=== PATIENT | male | born 1935 | race Caucasian/White ===

== ENCOUNTER 2018-04-11 12:54 | Emergency (ER) | payer MEDICARE, OTHER ==
[~2018-04-11] VITALS: Ht 167.6 cm; Wt 115.7 kg
[~2018-04-11 12:54] MED LIST: AMLODIPINE BESYL5 MG PO; ASPIR 8181 MG PO; ATENOLOL100 MG PO; CIPRO500 MG PO; CLOPIDOGREL75 MG PO; CONTOUR NEXT1 EACH MISC; COZAAR50 MG PO; FUROSEMIDE20 MG PO; KEFLEX500 MG PO; LANTUS SOL100 UNIT/1 SUB-Q; LISINOPRIL20 MG PO; METFORMIN HCL500 MG PO; NORCO 5-325 TA1 EACH PO; SIMVASTATIN20 MG PO; VITAMIN D31000 UNIT PO
[2018-04-11] MEDS ORDERED: METHYLPREDNISOLO4 M1 PO (15:05)
== END 2018-04-11 15:11 | disposition home or self-care (01) ==
LOC: ED 12:54
DX: M54.30 Sciatica, unspecified side (principal); M51.36 Other intervertebral disc degeneration, lumbar region; M47.896 Other spondylosis, lumbar region; E11.9 Type 2 diabetes mellitus without complications; I10 Essential (primary) hypertension; E78.00 Pure hypercholesterolemia, unspecified; Z87.891 Personal history of nicotine dependence; Z79.899 Other long term (current) drug therapy; Z79.4 Long term (current) use of insulin; Z79.82 Long term (current) use of aspirin
CPT/HCPCS: 72131; 73700; 80053; 81001; 85025; 96374; 99284; J1885

== ENCOUNTER 2019-01-28 04:03 | Emergency (ER) | payer MEDICARE, OTHER ==
[~2019-01-28] VITALS: Ht 167.6 cm; Wt 115.7 kg
--- OUTSIDE RECORDS SUMMARY | ~2019-01-28 | XMS | Clinical Summary ---
Demographics + + + | Address | [address] | | | [place] [address] | + + + | Home Phone | | + + + | Preferred Language | Unknown | + + + | Marital Status | | + + + | Muslim Affiliation | Unknown | + + + | Race | Unknown | + + + | Ethnic Group | Unknown | + + + Author + + + | Author | [facility] | | | and Michaelana | + + + | Organization | [facility] | | | and Michaelana | + + + | Address | Unknown | + + + | Phone | Unavailable | + + + Support + + + + + | Name | Relationship | Address | Phone | + + + + + | Sheba Bynum | ECON | [address] | | | | | [facility] [place] | | | | | [address] | | + + + + + Care Team Providers + +------+ + | Care French Drawer Name | Role | Phone | + +------+ + | Jamarcus Cage DO | PP | Unavailable | + +------+ + Allergies No Known Allergies Current Medications + + +-------+---------+------+------+-------+ | Prescription | Sig. | Disp. | Refills | Star | End | Statu | | | | | | t | Date | s | | | | | | Date | | | + + +-------+---------+------+------+-------+ | aspirin (ADULT | Take 81 mg by mouth | | | 01/30 | | Activ | | ASPIRIN EC LOW | Daily. | | | 05/20 | | e | | STRENGTH) 81 MG EC | | | | 12 | | | | tablet | | | | | | | + + +-------+---------+------+------+-------+ | lisinopril | Take 20 mg by mouth | | | 01/30 | | Activ | | (PRINIVIL, ZESTRIL) | Daily. | | | 05/20 | | e | | 20 mg tablet | | | | 12 | | | + + +-------+---------+------+------+-------+ | simvastatin | Take 20 mg by mouth | | | 07/02 | | Activ | | (ZOCOR) 20 mg tablet | Daily. | | | 01/18 | | e | | | | | | 12 | | | + + +-------+---------+------+------+-------+ | furosemide (LASIX) | Take 20 mg by mouth | | | 07/02 | | Activ | | 20 mg tablet | 2 times daily. | | | 01/18 | | e | | | | | | 12 | | | + + +-------+---------+------+------+-------+ | cholecalciferol | Take 1,000 Units by | | | 07/02 | | Activ | | ([facility] VITAMIN D) 1000 | mouth 2 times daily. | | | 01/18 | | e | | UNITS CAPS | | | | 12 | | | + + +-------+---------+------+------+-------+ | clopidogrel | Take 75 mg by mouth | | | | | Activ | | (PLAVIX) 75 mg | Daily. | | | | | e | | tablet | | | | | | | + + +-------+---------+------+------+-------+ | losartan (COZAAR) | Take 50 mg by mouth | | | | | Activ | | 50 mg tablet | Daily. | | | | | e | + + +-------+---------+------+------+-------+ | LANTUS SOLOSTAR | Inject 12 units | | 0 | 08/01 | | Activ | | 100 UNIT/ML | under the skin | | | 07/21 | | e | | injection (pen) | nightly | | | 16 | | | + + +-------+---------+------+------+-------+ | atenolol | Take 50 mg by mouth | | | | | Activ | | (TENORMIN) 100 MG | 2 times daily. | | | | | e | | tablet | | | | | | | + + +-------+---------+------+------+-------+ | allopurinol | Take 100 mg by mouth | | | | | Activ | | (ZYLOPRIM) 100 mg | Daily. | | | | | e | | tablet | | | | | | | + + +-------+---------+------+------+-------+ Active Problems + + + | Problem | Noted Date | + + + | COPD, mild (HCC) | 09/17/2015 | + + + | Alveolar hypoventilation | 09/11/2014 | + + + | HYPERTENSION, BENIGN ESSENTIAL | 02/16/2012 | + + + | RENAL FAILURE, CHRONIC | 02/16/2012 | + + + | DM | 02/16/2012 | + + + | OSTEOARTHRITIS, ANKLE | 02/16/2012 | + + + | HYPOXEMIA | | + + + Resolved Problems + +--------+ + | Problem | Noted | Resolved | | | Date | Date | + +--------+ + | COPD | | | | | | 3 | + +--------+ + | Sleep apnea, obstructive | | | | | | 3 | + +--------+ + Immunizations + + + + | Name | Dates Previously Given | Next Due | + + + + | INFLUENZA 66 Y OR >, | 08/25/2016, 08/17/2015 | | | TRIVALENT HIGH-DOSE | | | + + + + | INFLUENZA PF 19 Y OR | 08/31/2012 | | | >,TRIVALENT | | | | RECOMBINANT | | | + + + + | PNEUMOCOCCAL | 08/17/2015 | | | CONJUGATE 13-VALENT | | | | (PCV13) | | | + + + + | PNEUMOCOCCAL | 09/07/2009 | | | POLYSACCHARIDE | | | | 23-VALENT (PPSV23) | | | + + + + Family History + + +------+ + | Medical History | Relation | Name | Comments | + + +------+ + | Other (see comment) | Father | | CVA | + + +------+ + | Other (see comment) | Sister | | CAD | + + +------+ + | Other (see comment) | Sister | | CABG | + + +------+ + + +------+ + + | Relation | Name | Status | Comments | + +------+ + + | Father | | | | + +------+ + + | Mother | | | | + +------+ + + | Sister | | | | + +------+ + + | Sister | | | | + +------+ + + Social History + +-------+ +--------+ + | Tobacco Use | Types | Packs/Day | Years | Date | | | | | Used | | + +-------+ +--------+ + | Former Smoker | | 1 | 43 | 12/16/1955 - | | | | | | 09/07/2003 | + +-------+ +--------+ + + +---+---+---+ | Smokeless Tobacco: | | | | | Never Used | | | | + +---+---+---+ + + | Tobacco Cessation: Counseling Given: No | + + + + +---------+ + | Alcohol Use | Drinks/We | oz/Week | Comments | | | ek | | | + + +---------+ + | No | 0 | 0.0 | | | | Standard | | | | | drinks or | | | | | | | | | | equivalen | | | | | t | | | + + +---------+ + + + + | Sex Assigned at | Date Recorded | | | | + + + | Not on file | | + + + Last Filed Vital Signs + + + + | Vital Sign | Reading | Time Taken | + + + + | Blood Pressure | 120/80 | 09/15/20161245 PST | + + + + | Pulse | 92 | 09/15/20161245 PST | + + + + | Temperature | 36.7 C (98 F) | 09/17/20151315 PST | + + + + | Respiratory Rate | 20 | 09/17/20151315 PST | + + + + | Oxygen Saturation | 93% | 09/15/20161245 PST | + + + + | Inhaled Oxygen | - | - | | Concentration | | | + + + + | Weight | 113.7 kg (250 lb 9.6 | 09/15/20161245 PST | | | oz) | | + + + + | Height | 170.2 cm (5' 7") | 09/15/20161245 PST | + + + + | Body Mass Index | 39.25 | 09/15/20161245 PST | + + + + Plan of [...] filefrom Last 3 Months Insurance + +--------+ +--------+ +---------+ | Payer | Benefi | Subscriber | Type | Phone | Address | | | t Plan | ID | | | | | | / | | | | | | | Group | | | | | + +--------+ +--------+ +---------+ | MEDICARE | MEDICA | [id number] | Medica | +1- | | | | RE | | re | [phone] | | | | PART A | | | | | | | AND B | | | | | + +--------+ +--------+ +---------+ | [employer] [place] | UNITED | [id number] | Indemn | [phone] | | | | OF | | ity | 1000 | | | | [place] | | | | | | | MDCR | | | | | | | SUPPL | | | | | + +--------+ +--------+ +---------+ + +--------+ +--------+ + + | Guarantor Name | Accoun | Relation to | Date | Phone | Billing Address | | | t Type | Patient | of | | | | | | | | | | + +--------+ +--------+ + + | LEXIS BYNUM | Person | Self [birth year] Home: | [address] | | | al/Fam | | 1935 | [phone] | [place] [address] | | | [place] | | | [phone] | | + +--------+ +--------+ + +
--- OUTSIDE RECORDS SUMMARY | ~2019-01-28 | XMS | Clinical Summary ---
Demographics + + + | Address | [address] | | | [place] [address] | + + + | Home Phone | | + + + | Preferred Language | Unknown | + + + | Marital Status | | + + + | Gnosticism Affiliation | Unknown | + + + | Race | Unknown | + + + | Ethnic Group | Unknown | + + + Author + + + | Author | [facility] | + + + | Organization | [facility] | + + + | Address | Unknown | + + + | Phone | Unavailable | + + + Support + + + + + | Name | Relationship | Address | Phone | + + + + + | Sheba Bynum | ECON | [address] | | | | | [place] | | | | | [address] | | + + + + + Care Team Providers + +------+ + | Care Community Educator Name | Role | Phone | + [...] +------+-------+ + | MEDICARE | MEDICA | [id number] | | | [address] | | | RE | | | | [place], [place] [address] | | | IP-OP | | | | | + +--------+ +------+-------+ + | COMMERCIAL OTHER | COMMER | [id number] | | | | | | CIAL [...] | | | jov[place] | | | [phone] | [phone] | + +--------+ +--------+ + +
--- OUTSIDE RECORDS SUMMARY | ~2019-01-28 | XMS | Clinical Summary ---
Demographics + + + | Address | [address] | | | [place] [address] | + + + | Home Phone | | + + + | Preferred Language | Unknown | + + + | Marital Status | | + + + | Protestant Affiliation | Unknown | + + + | Race | Unknown | + + + | Ethnic Group | Unknown | + + + Author + + + | Author | [facility] | | | and Michaelana | + + + | Organization | [facility] | | | and Michaelana | + + + | Address | Unknown | + + + | Phone | Unavailable | + + + Support + + + + + | Name | Relationship | Address | Phone | + + + + + | Sheba Bynum | ECON | [address] | | | | | [facility] [place] | | | | | [address] | | + + + + + Care Team Providers + +------+ + | Care Comparison Shopper Name | Role | Phone | + [...] +--------+ +---------+ | MEDICARE | MEDICA | [id number] | Medica | +1- | | | | RE | | re | [phone] | | | | PART A | | | | | | | AND B | | | | | + +--------+ +--------+ +---------+ | [employer] [place] | UNITED | [id number] | Indemn | [phone] | | | | OF | | ity | 1000 | | | | [place] | | | | | | | [...] | 1935 | [phone] | [place] [address] | | | jovita | | | [phone] | | + +--------+ +--------+ + +
--- OUTSIDE RECORDS SUMMARY | ~2019-01-28 | XMS | Clinical Summary ---
Demographics + + + | Address | [address] | | | [place] [address] | + + + | Home Phone | | + + + | Preferred Language | Unknown | + + + | Marital Status | | + + + | Scientology Affiliation | Unknown | + + + | Race | Unknown | + + + | Ethnic Group | Unknown | + + + Author + + + | Author | [facility] | + + + | Organization | [facility] | + + + | Address | Unknown | + + + | Phone | Unavailable | + + + Support + + + + + | Name | Relationship | Address | Phone | + + + + + | Sheba Bynum | ECON | [address] | | | | | [place] | | | | | [address] | | + + + + + Care Team Providers + +------+ + | Care Lumber Inspector Name | Role | Phone | [...] +------+-------+ + | MEDICARE | MEDICA | [id number] | | | [address] | | | RE | | | | [place], [place] [address] | | | IP-OP | | | | | + +--------+ +------+-------+ + | COMMERCIAL OTHER | COMMER | [id number] | | | | | | CIAL [...] | | | [place] | | | [phone] | [phone] | + +--------+ +--------+ + +
[~2019-01-28 04:03] MED LIST changes: +METHYLPREDNISOLO4 M1 PO
[2019-01-28] MEDS ORDERED: ATENOLOL100 MG PO (04:18)
[2019-01-28] MEDS ORDERED: LOSARTAN POTASS50 MG PO ×2 (04:18)
== END 2019-01-28 05:12 | disposition home or self-care (01) ==
LOC: ED 04:03
DX: R04.0 Epistaxis (principal); E11.9 Type 2 diabetes mellitus without complications; I10 Essential (primary) hypertension; E78.00 Pure hypercholesterolemia, unspecified; Z87.891 Personal history of nicotine dependence; Z79.899 Other long term (current) drug therapy; Z79.4 Long term (current) use of insulin; Z79.82 Long term (current) use of aspirin
CPT/HCPCS: 30901; 99283-25

== ENCOUNTER 2019-01-28 09:41 | Emergency (ER) | payer MEDICARE, OTHER ==
[~2019-01-28] VITALS: Ht 167.6 cm; Wt 115.7 kg
--- OUTSIDE RECORDS SUMMARY | ~2019-01-28 | XMS | Clinical Summary ---
Demographics + + + | Address | [address] | | | [place] [address] | + + + | Home Phone | | + + + | Preferred Language | Unknown | + + + | Marital Status | | + + + | Gnosticist Affiliation | Unknown | + + + | Race | Unknown | + + + | Ethnic Group | Unknown | + + + Author + + + | Author | [facility] | + + + | Organization | [facility] | + + + | Address | Unknown | + + + | Phone | Unavailable | + + + Support + + + + + | Name | Relationship | Address | Phone | + + + + + | Sheba Bynum | ECON | [address] | | | | | [place] | | | | | [address] | | + + + + + Care Team Providers + +------+ + | Care Jewel Stripper Name | Role | Phone | + [...] +------+-------+ + | MEDICARE | MEDICA | [id number] | | | [address] | | | RE | | | | [place], [place] [address] | | | IP-OP | | | | | + +--------+ +------+-------+ + | COMMERCIAL OTHER | COMMER | [id number] | | | | | | CIAL [...] | | | jovita | | | [phone] | [phone] | + +--------+ +--------+ + +
--- OUTSIDE RECORDS SUMMARY | ~2019-01-28 | XMS | Clinical Summary ---
Demographics + + + | Address | [address] | | | [place] [address] | + + + | Home Phone | | + + + | Preferred Language | Unknown | + + + | Marital Status | | + + + | Anglican Affiliation | Unknown | + + + | Race | Unknown | + + + | Ethnic Group | Unknown | + + + Author + + + | Author | [facility] | + + + | Organization | [facility] | + + + | Address | Unknown | + + + | Phone | Unavailable | + + + Support + + + + + | Name | Relationship | Address | Phone | + + + + + | Sheba Bynum | ECON | [address] | | | | | [place] | | | | | [address] | | + + + + + Care Team Providers + +------+ + | Care Editing Clerk Name | Role | Phone | + [...] +------+-------+ + | MEDICARE | MEDICA | [id number] | | | [address] | | | RE | | | | [place], [place] [address] | | | IP-OP | | | | | + +--------+ +------+-------+ + | COMMERCIAL OTHER | COMMER | [id number] | | | | | | CIAL [...] | | | [place] | | | [phone] | [phone] | + +--------+ +--------+ + +
--- OUTSIDE RECORDS SUMMARY | ~2019-01-28 | XMS | Clinical Summary ---
Demographics + + + | Address | [address] | | | [place] [address] | + + + | Home Phone | | + + + | Preferred Language | Unknown | + + + | Marital Status | | + + + | Gnosticism Affiliation | Unknown | + + + | Race | Unknown | + + + | Ethnic Group | Unknown | + + + Author + + + | Author | [facility] | | | and Michaelana | + + + | Organization | [facility] | | | and Michaelana | + + + | Address | Unknown | + + + | Phone | Unavailable | + + + Support + + + + + | Name | Relationship | Address | Phone | + + + + + | Sheba Bynum | ECON | [address] | | | | | [facility] [place] | | | | | [address] | | + + + + + Care Team Providers + +------+ + | Care Temporary Administrative Assistant Name | Role | Phone | + [...] +--------+ +---------+ | MEDICARE | MEDICA | [id number] | Medica | +1- | | | | RE | | re | [phone] | | | | PART A | | | | | | | AND B | | | | | + +--------+ +--------+ +---------+ | [employer] [place] | UNITED | [id number] | Indemn | [phone] | | | | OF | | ity | 1000 | | | | TELLER | | | | | | | [...] | 1935 | [phone] | [place] [address] | | | j[place]ita | | | [phone] | | + +--------+ +--------+ + +
--- OUTSIDE RECORDS SUMMARY | ~2019-01-28 | XMS | Clinical Summary ---
Demographics + + + | Address | [address] | | | [place] [address] | + + + | Home Phone | | + + + | Preferred Language | Unknown | + + + | Marital Status | | + + + | Rastafarian Affiliation | Unknown | + + + | Race | Unknown | + + + | Ethnic Group | Unknown | + + + Author + + + | Author | [facility] | | | and Michaelana | + + + | Organization | [facility] | | | and Michaelana | + + + | Address | Unknown | + + + | Phone | Unavailable | + + + Support + + + + + | Name | Relationship | Address | Phone | + + + + + | Sheba Bynum | ECON | [address] | | | | | [address] [place] | | | | | [address] | | + + + + + Care Team Providers + +------+ + | Care Preparation Room Worker Name | Role | Phone | + [...] +--------+ +---------+ | MEDICARE | MEDICA | [id number] | Medica | +1- | | | | RE | | re | [phone] | | | | PART A | | | | | | | AND B | | | | | + +--------+ +--------+ +---------+ | [employer] [place] | UNITED | [id number] | Indemn | [phone] | | | | OF | | ity | 1000 | | | | [place] | | | | | | | [...] | 1935 | [phone] | [place] [address] | | | [place] | | | [phone] | | + +--------+ +--------+ + +
[~2019-01-28 09:41] MED LIST changes: +LOSARTAN POTASS50 MG PO
--- OUTSIDE RECORDS SUMMARY | 2019-01-28 09:44 | XMS ---
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 ECarlos VISIT COUNT (12 MO.) 3 [facility] TOTAL 3 NOTE: Visits indicate total known visits. 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
== END 2019-01-28 11:04 | disposition home or self-care (01) ==
LOC: ED 09:41
DX: R04.0 Epistaxis (principal); E11.9 Type 2 diabetes mellitus without complications; I10 Essential (primary) hypertension; Z87.891 Personal history of nicotine dependence; Z79.899 Other long term (current) drug therapy; Z79.4 Long term (current) use of insulin; Z79.82 Long term (current) use of aspirin
CPT/HCPCS: 30905; 85025; 99283-25

== ENCOUNTER 2019-01-30 11:20 | Emergency (ER) | payer MEDICARE, OTHER ==
[~2019-01-30] VITALS: Ht 167.6 cm; Wt 115.7 kg
--- OUTSIDE RECORDS SUMMARY | ~2019-01-30 | XMS | Clinical Summary ---
Demographics + + + | Address | [address] | | | [place] [address] | + + + | Home Phone | | + + + | Preferred Language | Unknown | + + + | Marital Status | | + + + | Mandaen Affiliation | Unknown | + + + | Race | Unknown | + + + | Ethnic Group | Unknown | + + + Author + + + | Author | [facility] | + + + | Organization | [facility] | + + + | Address | Unknown | + + + | Phone | Unavailable | + + + Support + + + + + | Name | Relationship | Address | Phone | + + + + + | Sheba Bynum | ECON | [address] | | | | | [place] | | | | | [address] | | + + + + + Care Team Providers + +------+ + | Care Spring Coiler Name | Role | Phone | + +------+ + | Jarred Cage DO | PP | | + +------+ + Allergies No Known Allergies Current Medications + + +--------+---------+------+------+-------+ | Prescription | Sig. | Disp. | Refills | Star | End | Statu | | | | | | t | Date | s | | | | | | Date | | | + + +--------+---------+------+------+-------+ | aspirin 81 MG | Take 81 mg by mouth | | | | | Activ | | tablet | daily. | | | | | e | + + +--------+---------+------+------+-------+ | atenolol | Take 50 mg by mouth | | | | | Activ | | (TENORMIN) 100 MG | 2 (two) times daily. | | | | | e | | tablet | | | | | | | + + +--------+---------+------+------+-------+ | simvastatin | Take 20 mg by mouth | | | | | Activ | | (ZOCOR) 20 MG tablet | nightly. | | | | | e | + + +--------+---------+------+------+-------+ | Cholecalciferol | Take 2,000 Units by | | | | | Activ | | (VITAMIN D3) 1000 | mouth daily. | | | | | e | | UNITS capsule | | | | | | | + + +--------+---------+------+------+-------+ | furosemide (LASIX) | Take 1 tablet by | 60 | 11 | 03/1 | | Activ | | 20 MG tablet | mouth 2 (two) times | tablet | | 0/20 | | e | | | daily. | | | 14 | | | + + +--------+---------+------+------+-------+ | lisinopril | Take 1 tablet by | 30 | 11 | 08/0 | | Activ | | (ZESTRIL) 20 MG | mouth daily. | tablet | | 05/20 | | e | | tablet | | | | 14 | | | + + +--------+---------+------+------+-------+ | insulin glargine | Inject 12 Units into | | | | | Activ | | (LANTUS) 100 UNIT/ML | the skin nightly. | | | | | e | | | Indications: Type 2 | | | | | | | injectionIndications | Diabetes | | | | | | | : Type 2 Diabetes | | | | | | | | Mellitus | | | | | | | + + +--------+---------+------+------+-------+ | clopidogrel | Take 1 tablet by | 30 | 1 | 07 | | Activ | | (PLAVIX) 75 MG | mouth daily. | tablet | | 07/21 | | e | | tablet | | | | 15 | | | + + +--------+---------+------+------+-------+ | losartan (COZAAR) | Take 1 tablet by | 90 | 3 | 04/01 | | Activ | | 50 MG | mouth daily. | tablet | | 05/20 | | e | | tabletIndications: | | | | 16 | | | | CKD (chronic kidney | | | | | | | | disease), stage III | | | | | | | | (HCC), Essential | | | | | | | | hypertension, | | | | | | | | benign, Proteinuria | | | | | | | + + +--------+---------+------+------+-------+ | allopurinol | Take 100 mg by mouth | | | | | Activ | | (ZYLOPRIM) 100 MG | daily. | | | | | e | | tablet | | | | | | | + + +--------+---------+------+------+-------+ Active Problems + + + | Problem | Noted Date | + + + | Hyperuricemia | 03/08/2013 | + + + | Edema of lower extremity | 01/04/2012 | + + + | CKD (chronic kidney disease), stage III | 11/30/2011 | + + + | Essential hypertension, benign | 11/30/2011 | + + + | Diabetes mellitus (HCC) | 11/30/2011 | + + + | Proteinuria | 11/30/2011 | + + + | Dyslipidemia | 11/30/2011 | + + + | Obesity | 11/30/2011 | + + + | Pulmonary embolism (HCC) | 11/30/2011 | + + + | Vitamin D deficiency | 11/30/2011 | + + + Resolved Problems + + + + | Problem | Noted | Resolved | | | Date | Date | + + + + | Brachial artery occlusion, left | 05/14/20 | | | | 15 | 5 | + + + + Social History + +-------+ +--------+ + | Tobacco Use | Types | Packs/Day | Years | Date | | | | | Used | | + +-------+ +--------+ + | Former Smoker | | 1 | 25 | Quit: 11/30/2001 | + +-------+ +--------+ + + +---+---+---+ | Smokeless Tobacco: | | | | | Never Used | | | | + +---+---+---+ + + | Tobacco Cessation: Counseling Given: No | + + + + +---------+ + | Alcohol Use | Drinks/We | oz/Week | Comments | | | ek | | | + + +---------+ + | No | | | | + + +---------+ + + + + | Sex Assigned at | Date Recorded | | | | + + + | Not on file | | + + + Last Filed Vital Signs + + + + | Vital Sign | Reading | Time Taken | + + + + | Blood Pressure | 156/66 | 06/14/2017 10:38 AM PDT | + + + + | Pulse | 68 | 06/14/2017 10:38 AM PDT | + + + + | Temperature | 35.9 C (96.6 F) | 06/14/2017 10:38 AM PDT | + + + + | Respiratory Rate | 16 | 05/19/2015 1:57 PM PDT | + + + + | Oxygen Saturation | 91% | 06/14/2017 10:38 AM PDT | + + + + | Inhaled Oxygen | - | - | | Concentration | | | + + + + | Weight | 118.2 kg (260 lb 9.6 | 06/14/2017 10:38 AM PDT | | | oz) | | + + + + | Height | 170.2 cm (5' 7") | 06/14/2017 10:38 AM PDT | + + + + | Body Mass Index | 40.82 | 06/14/2017 10:38 AM PDT | + + + + Plan of Treatment + + + + + | Health Maintenance | Due Date | Last Done | Comments | + + + + + | Diabetic Eye Exam | | | | | | 6 | | | + + + + + | Diabetic Foot Exam | | | | | | 6 | | | + + + + + | Vaccine: | | | | | Dtap/Tdap/Td (1 - | 5 | | | | Tdap) | | | | + + + + + | Vaccine: Zoster (1 | | | | | of 2) | 6 | | | + + + + + | Hemoglobin A1c | | 12/17/2017 | | | | 8 | | | + + + + + | Vaccine: Influenza | | 08/25/2016, 08/17/2015, | | | (#1) | 8 | 08/31/2012 | | + + + + + | Vaccine: | Completed | 08/17/2015, 09/07/2009 | | | Pneumococcal 65+ | | | | | Low/Medium Risk | | | | + + + + + Results Not on filefrom Last 3 Months Insurance + +--------+ +------+-------+ + | Payer | Benefi | Subscriber | Type | Phone | Address | | | t Plan | ID | | | | | | / | | | | | | | Group | | | | | + +--------+ +------+-------+ + | MEDICARE | MEDICA | [id number] | | | [address] | | | RE | | | | [place], [place] [address] | | | IP-OP | | | | | + +--------+ +------+-------+ + | COMMERCIAL OTHER | COMMER | [id number] | | | | | | CIAL | | | | | | | GENERI | | | | | | | C PLAN | | | | | + +--------+ +------+-------+ + + +--------+ +--------+ + + | Guarantor Name | Accoun | Relation to | Date | Phone | Billing Address | | | t Type | Patient | of | | | | | | | | | | + +--------+ +--------+ + + | LEXIS BYNUM | Person | Self [birth year] Home: | [address] | | | al/Fam | | 1935 | [phone] | [place] | | | [place] | | | [phone] | + +--------+ +--------+ + +
--- OUTSIDE RECORDS SUMMARY | ~2019-01-30 | XMS | Clinical Summary ---
Demographics + + + | Address | [address] | | | [place] [address] | + + + | Home Phone | | + + + | Preferred Language | Unknown | + + + | Marital Status | | + + + | Holiness Affiliation | Unknown | + + + | Race | Unknown | + + + | Ethnic Group | Unknown | + + + Author + + + | Author | [facility] | | | and [place] | + + + | Organization | [facility] | | | and [place] | + + + | Address | Unknown | + + + | Phone | Unavailable | + + + Support + + + + + | Name | Relationship | Address | Phone | + + + + + | Sheba Bynum | ECON | [address] | | | | | [place] | | | | | [address] | | + + + + + Care Team Providers + +------+ + | Care Environmental Scientist Name | Role | Phone | + [...] +--------+ +---------+ | MEDICARE | MEDICA | [id number] | Medica | [phone]- | | | | RE | | re | [phone] | | | | PART A | | | | | | | AND B | | | | | + +--------+ +--------+ +---------+ | [employer] [place] | UNITED | [id number] | Indemn | [phone] | | | | OF | | ity | [address] | | | | [place] | | | | | | | [...] | 1935 | [phone] | [place] [address] | | | [place] | | | [phone] | | + +--------+ +--------+ + +
--- OUTSIDE RECORDS SUMMARY | ~2019-01-30 | XMS | Clinical Summary ---
Demographics + + + | Address | [address] | | | [place] [address] | + + + | Home Phone | | + + + | Preferred Language | Unknown | + + + | Marital Status | | + + + | Quaker Affiliation | Unknown | + + + | Race | Unknown | + + + | Ethnic Group | Unknown | + + + Author + + + | Author | [facility] | + + + | Organization | [facility] | + + + | Address | Unknown | + + + | Phone | Unavailable | + + + Support + + + + + | Name | Relationship | Address | Phone | + + + + + | Sehba Bynum | ECON | [address] | | | | | [place] | | | | | [address] | | + + + + + Care Team Providers + +------+ + | Care Software Solutions Architect Name | Role | Phone | + [...] +------+-------+ + | MEDICARE | MEDICA | [id number] | | | [address] | | | RE | | | | [place], [place] [address] | | | IP-OP | | | | | + +--------+ +------+-------+ + | COMMERCIAL OTHER | COMMER | [id number] | | | | | | CIAL [...] | | | [place] | | | [phone] | + +--------+ +--------+ + +
--- OUTSIDE RECORDS SUMMARY | ~2019-01-30 | XMS | Clinical Summary ---
Demographics + + + | Address | [address] | | | [place] [address] | + + + | Home Phone | | + + + | Preferred Language | Unknown | + + + | Marital Status | | + + + | Confucianist Affiliation | Unknown | + + + | Race | Unknown | + + + | Ethnic Group | Unknown | + + + Author + + + | Author | [facility] | | | and [place] | + + + | Organization | [facility] | | | and [place] | + + + | Address | Unknown | + + + | Phone | Unavailable | + + + Support + + + + + | Name | Relationship | Address | Phone | + + + + + | Sheba Bynum | ECON | [address] | | | | | [address] [place] [place] | | | | | [address] | | + + + + + Care Team Providers + +------+ + | Care Gas Leak Inspector Name | Role | Phone | + [...] +--------+ +---------+ | MEDICARE | MEDICA | [id number] | Medica | [phone]- | | | | RE | | re | [phone] | | | | PART A | | | | | | | AND B | | | | | + +--------+ +--------+ +---------+ | [employer] [place] | UNITED | [id number] | Indemn | [phone] | | | | OF | | ity | [address] | | | | [place] | | | | | | | [...] | 1935 | [phone] | [place] [address] | | | [place] | | | [phone] | | + +--------+ +--------+ + +
--- OUTSIDE RECORDS SUMMARY | 2019-01-30 11:32 | XMS ---
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 [place] VISIT COUNT (12 MO.) [address] [place] [address] TOTAL 4 NOTE: Visits indicate total known visits. ED/UCC VISIT TRACKING (12 MO.) 01/30/2019 11:21 [facility] [place] TYPE: Emergency COMPLAINT: - NOSE BLEED, REMOVE PACKING 01/28/2019 09:41 [facility] [place] TYPE: Emergency COMPLAINT: - BLOODY NOSE 01/28/2019 04:04 [facility] [place] TYPE: Emergency COMPLAINT: - NOSEBLEED 04/11/2018 12:[address] [facility] [place] TYPE: Emergency COMPLAINT: - R LEG PAIN/NO INJURY DIAGNOSES: - Type 2 diabetes mellitus without complications - Personal history of nicotine dependence - group home (current) use of insulin - Other usp (current) drug therapy - Essential (primary) hypertension - Sciatica, unspecified side - Other intervertebral disc degeneration, lumbar region - PURE HYPERCHOLESTEROLEMIA, UNSPECIFIED - group home (current) use of aspirin - Pain in right hip - Other spondylosis, lumbar region INPATIENT VISIT TRACKING (12 MO.) No inpatient visits to display in this time frame [email or web address]
[2019-01-30] MEDS ORDERED: KEFLEX500 MG PO (11:53)
== END 2019-01-30 11:50 | disposition home or self-care (01) ==
LOC: ED 11:20
DX: R04.0 Epistaxis (principal); E11.9 Type 2 diabetes mellitus without complications; I10 Essential (primary) hypertension; E78.00 Pure hypercholesterolemia, unspecified; Z87.891 Personal history of nicotine dependence; Z79.899 Other long term (current) drug therapy; Z79.4 Long term (current) use of insulin; Z79.82 Long term (current) use of aspirin
CPT/HCPCS: 99282

== ENCOUNTER 2021-01-30 09:51 | Emergency (ER) | payer MEDICARE, OTHER ==
[~2021-01-30] VITALS: Ht 167.6 cm; Wt 115.7 kg
[2021-01-30] MEDS ORDERED: CEPHALEXIN250 M1 PO (12:23)
--- NOTE | 2021-01-30 12:57 | EKG ---
[facility] [address] [facility] [place] [address] Signed Atrial fibrillation Left axis deviation Low voltage QRS Inferior infarct , age undetermined Possible Anterolateral infarct , age undetermined Abnormal ECG No previous ECGs available Confirmed by GISELLE MARTINEZ MD ([id number]) on 01/30/2021 12:56:47 PM Electronically Signed By: GISELLE MARTINEZ MD 01/30/21 1257 PATIENT NAME: LEXIS BYNUM WANDA Electrocardiogram DATE OF : 37 PHYSICIAN: GISELLE MARTINEZ MD REPORT #: [id number] REPORT IS CONFIDENTIAL AND NOT TO BE RELEASED WITHOUT AUTHORIZATION
== END 2021-01-30 13:12 | disposition home or self-care (01) ==
LOC: ED 09:51
DX: I11.0 Hypertensive heart disease with heart failure (principal); I50.9 Heart failure, unspecified; I48.91 Unspecified atrial fibrillation; L03.115 Cellulitis of right lower limb; K59.00 Constipation, unspecified; E11.9 Type 2 diabetes mellitus without complications; E78.00 Pure hypercholesterolemia, unspecified; Z87.891 Personal history of nicotine dependence; Z79.899 Other long term (current) drug therapy; Z79.4 Long term (current) use of insulin; Z79.82 Long term (current) use of aspirin
CPT/HCPCS: 74022; 80053; 81001; 83690; 83880; 84484; 85025; 93005; 93010; 96374; 96375; 99285-25; J0696; J1940

== ENCOUNTER 2022-01-01 15:16 | Inpatient (IN) | payer MEDICARE ==
[~2022-01-01] VITALS: Ht 167.6 cm; Wt 99.2 kg
[~2022-01-01 15:16] MED LIST changes: +CEPHALEXIN250 M1 PO; -VITAMIN D31000 UNIT PO; +VITAMIN D325 MC4 PO
[2022-01-01] MEDS ORDERED: CEPHALEXIN500 M1 PO (21:26)
--- NOTE | 2022-01-02 00:26 | NUR ---
PT ARRIVED VIA STRETCHER, PT MOVED TO HOSPITAL BED AND PLACED IN POSITION OF COMFORT, PT VERY HARD OF HEARING, POOR HISTORIANELVIA DOCUMENTED, PRIMARY RN NOTIFIED OF PT STATUS AND THAT ADMISSION WAS COMPLETE EXCEPT FOR HEAD TO TOE ASSESSMENT. PT COVERED WITH BLANKETS, GIVEN CALL LIGHT, BED ALARM ON AND BED IN LOWEST POSITION
--- NOTE | 2022-01-02 00:52 | NUR ---
IN ROOM TO ASSESS PT AND START IV FLUIDS. PT DENIES PAIN AND SOB. PT ASSISTED TO RESTROOM BY VICTOR HUGO GANT SHE ALSO COMPLETED HIS ADMISSION HX. PT REPORTS SOME NUMBNESS IN LEFT FOOT, PULSES ARE PALPABLE , FOOT IS WARM. PT WOULD LIKE TO SLEEP AND DENIES FURTHER NEEDS. CALL LIGHT IS CLOSE. BED ALARM IS ON.
--- NOTE | 2022-01-02 01:21 | NUR ---
IN ROOM TO START IV ABX. PT DENIES NEEDS. CALL LIGHT IS CLOSE AND BED ALARM IS ON.
--- NOTE | 2022-01-02 02:03 | NUR ---
IN ROOM TO START IV ABX, PT IS RESTING WITH EYES CLOSED, CALL LIGHT IS CLOSE AND BED ALARM IS ON.
--- NOTE | 2022-01-02 05:06 | NUR ---
PT IS RESTING WITH EYES CLOSED, RR IS EVEN AND UNLABORED. CALL LIGHT IS CLOSE. IV IS INFUSING FINE.
--- NOTE | 2022-01-02 05:54 | NUR ---
PT CALLED FOR HELP TO RESTROOM 1PA WITH CANE. PT IS BACK IN BED AND DENIES FURTHER NEEDS. CALL LIGHT IS CLOSE AND IV IS INFUSING FINE.
--- NOTE | 2022-01-02 07:27 | NUR ---
REPORT RECEIVED FROM ALFREDA SÁNCHEZ PT RESTING IN BED, ALERT AND ANSWERS QUESTIONS. PT STATES HE IS "GOING HOME TODAY." PT ENCOURAGED TO WAIT TO TALK WITH THE DOCTOR. PT DENIES PAIN AND NAUSEA. NO ADDITIONAL REQUESTS OR COMPLAINTS AT THIS TIME. CALL LIGHT WITHIN REACH. BED RAILS UP. BED ALARM ON.
--- NOTE | 2022-01-02 08:20 | NUR ---
MORNING ASSESSMENT AND MEDICATION DUE. PT AWAKE AND ALERT AND ORIENTED TO ALL. PT FOLLOWS DIRECTIONS AND ANSWERES APPROPRATLY WHEN HE CAN HEAR. PT REMAINS VERY HARD OF HEARING. PT REPORTS 6/10 PAIN IN HIS "LEGS." PT DECLINES PAIN MEDICAITON. PT DENIES NAUSEA. IV ASSESSED, WNL. NO S/S OF PHLEBITIS NOTED. IV ABX AND FLUIDS INFUSING. PT FORGETFUL AT TIMES, HOWEVER, PT ALSO HAS SO MUCH TROUBLE HEARING IT CANNOT BE RULED OUT THAT PT MAY NOT HAVE HEARD INFORMATION IN THE FIRST PLACE. PT REPORTS NUMBNESS AND TINGLING TO BILATERAL LOWER LEGS UP TO KNEE LEVEL. PT REPORTS OCCATIONAL "SHOOTING" PAINS IN HIS LEGAS WELL. 1 PERSON ASSIST WITH CANE UP TO CHAIR. PT GRABS AT WALL, RAILS, BED, IV POLE TO STEADY HIMSELF. PT NOTED TO NOT STAND UP STRIAGHT WITH AMBULATION. PT REPORTS BASELINE STRENGTH AND SATES "I JUST CAN'T FEEL MY FEET SO I DON'T WALK RIGHT." LUGN SOUDNS CLEAR. HEART TONES IRREGULAR. LOWER EXTREMITY EDEMA UNCHANGED. SKIN TO BILATERAL LOWER LEGS REMAINS RED, LYUDMILA AND DRY. SOCKS IN PLACE. PT DENIES ADDITIONAL REQUESTS OR COMPLAINTS. MEDICATION GIVEN. CHAIR ALARM ON. CALL LIGHT WITHIN REACH.
--- NOTE | 2022-01-02 09:53 | NUR ---
THIS RN TO ROOM TO CHECK ON PT. PT REMAINS UP TO CHAIR. IV PUMP ALARMING, IV ABX INFUSION COMPLETE. 2ND IV ABX HUNG. PT REPORTS HE WENT FOR A WALK WITH PHYSICAL THERAPY AND STATE "THAT TIRED ME OUT, I DON'T USUALLY WALK THAT MUCH." PT REPORTS 5/10 PAIN IN LOWER LEGS, PT CONTINUES TO DECLINE PAIN MEDICATION. ICE WATER REFILLED. NO ADDITIONAL REQUESTS OR COMPLAINTS. CALL LIGHT WITHIN REACH. CHAIR ALARM ON.
[2022-01-02] MEDS ORDERED: CEPHALEXIN250 MG PO (10:44)
[2022-01-02] MEDS ORDERED: POTASSIUM CHLO20 ME1 PO (10:46)
--- NOTE | 2022-01-02 11:34 | NUR ---
THIS RN TO ROOM TO CHECK ON PT. PT REMAINS UP TO CHAIR. PT REPORTS ONGOING 6/10 PAIN IN FEET/LEGS. PT CONTINUES TO DECLINE PAIN MEDICATION. BLOOD SUGAR TAKEN. ICE WATER REFILLED. PT DENIES ADDITIONAL REQUESTS OR COMPLAINTS. CALL LIGHT WITHIN REACH. CHAIR ALARM ON.
--- NOTE | 2022-01-02 12:05 | NUR ---
LUNCH ARRIVED, DELIVERED TO PT. INSULIN GIVEN. PT TALKING WITH HIS ON THE PHONE. PT REPORTS HIS WONT BE VISITING UNLESS HE IS DISCHRAGED. PT DENIES ADDITIONAL REQUESTS OR COMPLAINTS. CALL LIGHT ROXANNE PAN. CHAIR ALARM ON .
--- NOTE | 2022-01-02 12:39 | NUR ---
MED REC COMPLETE
--- NOTE | 2022-01-02 13:30 | NUR ---
THIS RN TO ROOM TO CHECK ON PT. PT UP TO CHAIR, RESTING WITH EYES CLOSED. RESPIRATIONS EVEN AND UNLABORED. MEDICATIONS GIVEN. PT ALLOWED TO REST. CALL LIGHT WITHIN REACH. CHAIR ALARM ON.
--- NOTE | 2022-01-02 15:30 | NUR ---
AFTERNOON ASSESSMENT DUE. PT RESTING IN BED WITH EYES CLOSED. PT AWAKENES TO VOICE AND GENTAL TOUCH. PT REPORT 6/10 PAIN IN "LEGS" THAT IS "ABOUT NORMAL." PT CONTINUES TO DECLINE PAIN MEDICAITON. PT REMAINS ALERT AND ORIENTED AND FOLLOWING DIRECTIONS. PT FORGETFUL AT TIMES BUT IS ABLE TO REPEAT BACK WITH HE WAS TOLD BY MD EARLIER TODAY. PT CONTINUES TO REPORT NUMBNESS AND TINGLING TO FEET BUT NOT HANDS. LUGN SOUNDS CLEAR. HEART TONES REGULAR AT THIS TIME. BLE REMAIN RED AND LYUDMILA WITH DRY SKIN NOTED. PT CALLS DINNER ORDER DOWN TO CAFETERIA. PT DENIES ADDITONAL REQUESTS OR COMPLAINTS. CALL LIGHT WITHIN REACH. BED RAILS UP. BED ALARM ON.
--- NOTE | 2022-01-02 16:45 | NUR ---
THIS RN TO ROOM TO CHECK ON PT. PT WAKING UP NATURALLY FROM NAP. 1 PERSON ASSIST UP TO RESTROOM. PT VOIDS WITHOUT ISSUE AND PERFORMS SELF ADRIAN CARE. 1 PERSON ASSIST UP TO CHAIR FOR DINNER. BLOOD SUGAR TAKEN. MEDICATION GIVEN (SEE MAR). PT REPORTS BASELINE 6/10 PAIN IN LEGS, CONTINUES TO DECLINE PAIN MEDICATION. NO ADDITIONAL REQUESTS OR COMPLAINTS. CALL LIGHT WITHIN REACH. CHAIR ALARM ON.
--- NOTE | 2022-01-02 16:45 | NUR ---
Pt states he and live in a 1 story home with 2 steps and rails. They have several walkers and a shower chair. He and both drive. Family live in the area and assist if needed. He denies needs at this time and plans on dc to home when cleared medically. Pt is [facility]. No financial issues.
--- NOTE | 2022-01-02 17:33 | NUR ---
THIS RN TO ROOM TO CHECK ON PT. 2ND ABX ARRIVED FROM PHARMACY. IV ABX GIVEN ORDERED. PT REMAINS UP TO CHAIR. EATING DINNER. PT DENIES ADDITIONAL REQUESTS OR COMPLAINTS. CALL LIGHT WITHIN REACH. CHAIR ALARM ON.
--- NOTE | 2022-01-02 18:11 | NUR ---
PT HERE FOR LEFT FOOD CELLUITIS. PT UP WITH CHAIR AND RESTROOM WITH 1 PERSON ASSIST AND CANE, PHYSICAL THERAPY THIS SHIFT. PT TOELRATING 60G CARB DIET WITH GOOD APPITITE. PT REMAINS ON ROOM AIR WITH CLEAR LUNG SOUNDS. HEART TONES REGAULAR. PT VERY HARD OF HEARING, FORGETFUL, BUT ORIENTED X4. IV ABX GIVEN. PT VOIDING QUANTITY SUFFICIENT. PT DOES NOT USE CALL LIGHT. BED/CHAIR ALARM FOR SAFETY.
--- NOTE | 2022-01-02 18:23 | NUR ---
THIS RN TO ROOM TO CHECK ON PT. VITAL SIGNS STABLE. 1 PERSON ASSIST BACK TO BED. PTS DAUGHTER CALLS, UPDATED BY THIS RN PER PT REQUEST, PT TALKIGN WITH DAUGHTER ON PHONE. PT REPORTS 5-6/10 PAIN IN FEET, CONTINUES TO DECLINE PAIN MEDICATION. NO ADDITIONAL REQUESTS OR COMPLAINTS. BED RAILS UP. CALL LIGHT WITHIN REACH. BED ALARM ON.
--- NOTE | 2022-01-02 19:50 | NUR ---
BEDSIDE REPORT PT RESTING IN BED ALERT AND ORIENTED. NO REQUESTS AT THIS TIME. NO DISTRESS NOTED.
--- NOTE | 2022-01-02 20:53 | NUR ---
PT CALLED FOR ASSISTANCE TO RESTROOM. SBA TO RESTROOM AND BACK TO BED. HE VOIDED 500MLS OF URINE. PT DENIES FURTHER NEEDS. CALL LIGHT IS CLOSE AND BED ALARM IS ON.
--- NOTE | 2022-01-02 22:14 | NUR ---
PT RESTING IN BED, EYES CLOSED RR EVEN AT 16 BPM, NO DISTRESS NOTED, PT ALERT TO TOUCH, HE IS VERY HARD OF HEARING. HE REPROTS NO PAIN OR NAUSEA, NO REQUESTS OR CONCERNS
--- NOTE | 2022-01-03 00:24 | NUR ---
CALLED TO NOTIFY THAT LAB CALLED TO REPORT POSITIVE BLOOD CULTURE REPORT IN AEROBIC BOTTLE..GRAM POSITIVE COCCI IN CLUSTERS. ASKED IF JUST ONE BOTTLE GREW OUT, ACCORDING TO LAB REPORT ONLY AEROBIC BOTTLE. NO NEW ORDERS AT THIS TIME
--- NOTE | 2022-01-03 01:41 | NUR ---
PT USED CALL LIGHT, THEN SET OFF BED ALARM BEFORE STAFF ARRIVED AT ROOM. PT SITTING AT BEDSIDE, HE VERBALIZED HE NEEDS ASSISTANCE WITH GOING TO THE BATHROOM. PT STANDBY CLOSE ASSIST PT IS UNSTEADY AND TRIES TO WALK FAST TO BATHROOM, HE STUMBLED TWICE IN ROUTE. THIS RN AT HIS SIDE TO STEADY HIM. PT AMBULATED BACK TO BED AFTER VOIDING 500ML YELLOW URINE, IMPROVED STEADIER GAIT WITH AMBULATION BACK TO BED. PT SAID "I AM MORE AWAKE NOW..(LAUGHED)" FRESH WATER PROVIDED, PT HAS NO OTHER CONCERNS OR REQUESTS AT THIS TIME.
--- NOTE | 2022-01-03 04:42 | NUR ---
PT HAS SLEPT WELL OVER SHIFT, HE HAS NOT REPORTED ANY PAIN OR NAUSEA, HE IS UNSTEADY WITH AMBULATION NEED TO STAY CLOSE TO ASSIST. QUANTITY SUFFICIENT URINE OUT. SL EXCEPT FOR ABX. HE IS VERY HARD OF HEARING. CALLED OVER SHIFT DUE TO POSITIVE BLOOD CULTURE ANAEROBIC BOTTLE GRAM POSITIVE COCCI IN CLUSTERS. PT HAS BEEN AFEBRIL, V/S STABLE.
--- NOTE | 2022-01-03 04:57 | NUR ---
PT IV PUMP ALARMING, PT ROUNDING, PT RESTING IN BED EYES CLOSED RR EVEN AT 18 BPM, NO DISTRESS NOTED. ABX FINISHED PT S/L.
--- NOTE | 2022-01-03 06:02 | NUR ---
PT UP OUT OF BED, SETTING OFF BED ALARM, STAFF INTO PT ROOM TO ASSIST, PT VERBALIZED NEEDING TO USE THE BATHROOM, ASSISTED TO BATHROOM BY MUNIR ZAMAN RN AND THEN BACK TO BED. V/S COMPLETED AND STABLE, URINE OUT IS QUANTITY SUFFICIENT.
--- NOTE | 2022-01-03 07:28 | NUR ---
REPORT RECEIVED FROM ALFREDA AMARAL. PT RESTING IN BED ON BACK WITH EYES CLOSED, HEAD OF BED ELEVATED TO 20 DEGREES. RESPRIATIONS EVEN AND UNLABORED. PT ALLOWED TO REST. BED RAILS UP. BED ALARM ON. CALL LIGHT WITHIN REACH.
--- NOTE | 2022-01-03 09:26 | NUR ---
MORNING ASSESSMENT AND MEDICATIONS DUE. PT UP TO CHAIR, EATING BREAKFAST. PT REPORTS 6/10 PAIN IN LEFT FOOT AND LOWER LEG. PT DECLINE TYELNOL. ASKS FOR "SOME CREAM OR SOMETHING." DRY SKIN NOTED THROUGHOUT LEFT FOOT. FOOT AND LEG RED AND HOT TO TOUCH. SKIN TIGHT. LOTION APPLIED. MESSGE SENT TO MD REGARDING POSSIBLE PAIN CREAM. PT CONTINEUS TO BE VERY HARD OF HEARING BUT ORIENTED TO ALL AND ANSWERING QUESTIONS APPROPRIATLY WHEN HE UNDERSTANDS THE QUESTIONS. STAND BY ASSIST UP TO RESTROOM. PT UNSTEADY ON FEET. LUNG SOUNDS CLEAR HERAT TONES REGULAR. STAND BY ASSIST WITH CANE BACK TO CHAIR. CHAIR ALARM ON. CALL LIGHT WITHIN REACH. NO ADDITIONAL REQUESTS OR COMPLAINTS AT THIS TIME.
--- NOTE | 2022-01-03 09:41 | NUR ---
PHYSICAL THERAPIST TO BEDSIDE TO WORK WITH PT. FRESH UNDERARE PROVIDED, ADDITIONAL ADRIAN CARE DONE. PT CONTINUES TO BE UNSTEADY ON FEET. PT WORKING WITH PHYSICAL THERAPIST.
--- NOTE | 2022-01-03 10:49 | NUR ---
THIS RN TO ROOM TO CHECK ON PT. PT FINISHED WITH PHYSICAL THERAPY. PT STATES "IT WENT REALLY WELL." PT REPORTS HE IS READY TO GO HOME. PT ENCOURAGED TO WAIT TO HEAR FROM THE DOCTOR. IV SALINE LOCKED, ALCOHOL CAP APPLIED. FRESH ICE WATER PROVIDED. PT REPORTS 5/10 PAIN IN LEFT FOOT THAT IS "BETTER." NO ADDITIONAL REQUESTS OR COMPLAINTS. CALL LIGHT WITHIN REACH. BED RAILS UP. CHAIR ALARM ON.
--- NOTE | 2022-01-03 12:27 | NUR ---
THIS RN TO ROOM TO CHECK ON PT. BLOOD SUGAR TAKEN. PT REMAINS UP TO CHAIR "WAITING FOR THE DOCTOR TO SEND ME HOME." PT REPORTS 5/10 PAIN IN LEFT FOOT, CONTINUES TO DECLINES PAIN MEDICATION. INSULIN GIVEN. LUNCH DELIVERED. ICE WATER REFILLED. NO ADDITIONAL REQUESTS OR COMPLAINTS. CALL LIGHT WITHIN REACH. CHAIR ALARM ON.
[2022-01-03] MEDS ORDERED: DOXYCYCLINE HY100 MG PO (13:59)
--- NOTE | 2022-01-03 14:00 | NUR ---
THIS RN INFORMED THAT ALFREDA AWAN IS COMPLETING DISCHARGE. SEE RN NOTE BY LV.
[2022-01-03] MEDS ORDERED: MICONAZOLE5 GM TOP (14:02)
[2022-01-03] MEDS ORDERED: ATENOLOL100 MG PO (14:12)
[2022-01-03] MEDS ORDERED: LOSARTAN POTASS50 MG PO (14:12)
--- NOTE | 2022-01-03 14:45 | NUR ---
Discharge teaching provided to patient and family who verbalize understanding and repeat back medication instructions. Prescriptions for antifungal powder and ABX faxed to pharmacy. F/U appointment made and education sent with patient. No questions at this time.
== END 2022-01-03 14:45 | disposition home or self-care (01) | DRG 603 ==
LOC: ED 15:16 → MS 22:23
PROVIDERS: ADMIT Internal Medicine; ATTEND Internal Medicine
DX: L03.116 Cellulitis of left lower limb (principal); N18.4 Chronic kidney disease, stage 4 (severe); B96.89 Other specified bacterial agents as the cause of diseases classified elsewhere; E11.22 Type 2 diabetes mellitus with diabetic chronic kidney disease; I87.8 Other specified disorders of veins; I12.9 Hypertensive chronic kidney disease with stage 1 through stage 4 chronic kidney disease, or unspecified chronic kidney disease; E78.5 Hyperlipidemia, unspecified; Z89.022 Acquired absence of left finger(s); Z87.891 Personal history of nicotine dependence; Z90.49 Acquired absence of other specified parts of digestive tract; Z79.4 Long term (current) use of insulin; Z20.822 Contact with and (suspected) exposure to COVID-19; L30.4 Erythema intertrigo
CPT/HCPCS: 36415; 73700; 80048; 83605; 85025; 86140; 87040; 87077; 87186; 97161; 99285-25; C9803; J1650; J1815; J1940; J7030; U0003

== ENCOUNTER 2022-04-08 10:32 | Emergency (ER) | payer MEDICARE, OTHER ==
[~2022-04-08] VITALS: Ht 167.6 cm; Wt 99.2 kg
--- NOTE | ~2022-04-08 | EKG ---
[facility] [address] [facility] [place], [place] [address] Draft EK completed, results pending confirmation PATIENT NAME: WILFREDO BYNUMRobert MUÑOZ Electrocardiogram DATE OF : 37 PHYSICIAN: PRELIMINARY REPORT #: [id number] REPORT IS CONFIDENTIAL AND NOT TO BE RELEASED WITHOUT AUTHORIZATION
[~2022-04-08 10:32] MED LIST changes: +CEPHALEXIN250 MG PO; +CEPHALEXIN500 M1 PO; +DOXYCYCLINE HY100 MG PO; +MICONAZOLE5 GM TOP; +POTASSIUM CHLO20 ME1 PO
[2022-04-08] MEDS ORDERED: PREDNISONE20 MG PO (13:57)
== END 2022-04-08 14:16 | disposition home or self-care (01) ==
LOC: ED 10:32
DX: M19.031 Primary osteoarthritis, right wrist (principal); E11.9 Type 2 diabetes mellitus without complications; I10 Essential (primary) hypertension; E78.00 Pure hypercholesterolemia, unspecified; Z87.891 Personal history of nicotine dependence; Z79.899 Other long term (current) drug therapy; Z79.82 Long term (current) use of aspirin; Z79.4 Long term (current) use of insulin
CPT/HCPCS: 73110; 93005; 93010; 99283-25

== ENCOUNTER 2023-11-20 13:32 | Emergency (ER) | payer OTHER, MEDICARE ==
[~2023-11-20 13:32] MED LIST changes: +PREDNISONE20 MG PO
[2023-11-20 15:07] VITALS: BP 129/53
== END 2023-11-20 15:09 | disposition home or self-care (01) ==
LOC: ED 13:32
DX: S52.122A Displaced fracture of head of left radius, initial encounter for closed fracture (principal); E11.9 Type 2 diabetes mellitus without complications; I10 Essential (primary) hypertension; E78.00 Pure hypercholesterolemia, unspecified; Z87.891 Personal history of nicotine dependence; Z79.82 Long term (current) use of aspirin; Z79.4 Long term (current) use of insulin; Z79.02 Long term (current) use of antithrombotics/antiplatelets; Z79.899 Other long term (current) drug therapy; W01.0XXA Fall on same level from slipping, tripping and stumbling without subsequent striking against object, initial encounter
CPT/HCPCS: 29105; 73080; 99283-25; A9270

== ENCOUNTER 2024-05-21 17:30 | Emergency (ER) | payer MEDICARE, OTHER ==
[~2024-05-21] VITALS: Ht 167.6 cm; Wt 105.1 kg
[~2024-05-21 17:30] MED LIST changes: +HYDROCODON-ACE1 EA10 PO; +ONDANSETRON ODT8 MG PO; +SENNA4.4 MG/2.5 PO
--- OUTSIDE RECORDS SUMMARY | 2024-05-21 17:31 | XMS ---
PreManage Notification: LEXIS BYNUM Security Seasoner Events No recent Security Events currently on file CRITERIA MET - [facility] - 2 Visits in 30 Days CARE PROVIDERS KIZZY CHU [facility] 01/30/2019-Current PHONE: Unknown Kathy has no Care Guidelines for this patient. [place] VISIT COUNT (12 MO.) 3 [facility] TOTAL 3 NOTE: Visits indicate total known visits. ED/UCC VISIT TRACKING (12 MO.) 05/21/2024 17:31 [facility] [place] TYPE: Emergency COMPLAINT: - KNEE PAIN 05/15/2024 13:31 [facility] [place] TYPE: Emergency COMPLAINT: - LT KNEE PAIN DIAGNOSES: - Essential (primary) hypertension - Localized swelling, mass and lump, lower limb, bilateral - USP (current) use of insulin - Other senior care (current) drug therapy - Pain in left knee - Personal history of nicotine dependence - Synovial cyst of popliteal space [Damon], left knee - Type 2 diabetes mellitus with diabetic chronic kidney disease 11/20/2023 13:34 [facility] [place] TYPE: Emergency COMPLAINT: - ELBOW INJURY DIAGNOSES: - Displaced fracture of head of left radius, initial encounter for closed fracture - Essential (primary) hypertension - Fall on same level from slipping, tripping and stumbling without subsequent striking against object, initial encounter - USP (current) use of antithrombotics/antiplatelets - USP (current) use of aspirin - watermaster (current) use of insulin - Other senior care (current) drug therapy - Pain in left elbow - Personal history of nicotine dependence - Pure hypercholesterolemia, unspecified - Type 2 diabetes mellitus without complications INPATIENT VISIT TRACKING (12 MO.) No inpatient visits to display in this time frame [email or web address]
[2024-05-21] MEDS ORDERED: TRIAMCINOLONE ACET 40 MG/ML VIAL 1 ML IAARTIC ONE (18:15)
[2024-05-21] MEDS ORDERED: ACETAMINOPHEN 500 MG TAB PO ONE (19:00)
[2024-05-21 19:10] VITALS: BP 135/56
== END 2024-05-21 19:10 | disposition home or self-care (01) ==
LOC: ED 17:30
DX: M25.562 Pain in left knee (principal); I10 Essential (primary) hypertension; E11.9 Type 2 diabetes mellitus without complications; Z87.891 Personal history of nicotine dependence; Z79.899 Other long term (current) drug therapy
CPT/HCPCS: 73560; 99283; A9270; J3301

== ENCOUNTER 2024-12-27 09:21 | Inpatient (IN) | payer MEDICARE, OTHER ==
[~2024-12-27] VITALS: Ht 167.6 cm; Wt 103.0 kg
--- OUTSIDE RECORDS SUMMARY | 2024-12-27 09:28 | XMS ---
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 [place] VISIT COUNT (12 MO.) [address] [place] [address] TOTAL 4 NOTE: Visits indicate total known visits. ED/UCC VISIT TRACKING (12 MO.) 12/27/2024 09:22 [facility] [place] TYPE: Emergency COMPLAINT: - LT LEG SWELLING 12/04/2024 13:12 [facility] [place] TYPE: Emergency COMPLAINT: - LT LEG SWELLING 05/21/2024 17:31 [facility] [place] TYPE: Emergency COMPLAINT: - KNEE PAIN DIAGNOSES: - Essential (primary) hypertension - Other ad terminal makeup operator (current) drug therapy - Pain in left knee - Personal history of nicotine dependence - Type 2 diabetes mellitus without complications 05/15/2024 13:[address] [facility] [place] TYPE: Emergency COMPLAINT: - LT KNEE PAIN DIAGNOSES: - Essential (primary) hypertension - Localized swelling, mass and lump, lower limb, bilateral - emt intermediate (current) use of insulin - Other prison (current) drug therapy - Pain in left knee - Personal history of nicotine dependence - Synovial cyst of popliteal space [Damon], left knee - Type 2 diabetes mellitus with diabetic chronic kidney disease INPATIENT VISIT TRACKING (12 MO.) No inpatient visits to display in this time frame [email or web address]
[2024-12-27] MEDS ORDERED: FUROSEMIDE80 MG PO (09:51)
[2024-12-27] MEDS ORDERED: LOSARTAN POTASS50 MG PO (09:52)
[2024-12-27 10:17] LABS: BASOPHILS 0.7 % (0-2); EOSINOPHILS 5.7 % (0-6); HEMATOCRIT 39.6 % (35.0-50.0); HEMOGLOBIN 13.4 g/dL (12.0-18.0); LYMPHOCYTES 11.2 % (24-44); MCH 28.9 (27-36); MCHC 33.8 g/dl (30-36); MCV 85.5 fl (81-99); MONOCYTES 10.5 % (0-12); NEUTROPHILS 71.9 % (39-80); PLATELET COUNT 218 K/uL (140-440); RBC 4.63 M/ul (4.3-5.7); RDW 18.4 (10.5-15.0)
[2024-12-27 10:34] LABS: ALBUMIN 3.2 g/dL (3.4-5.0); ALBUMIN/GLOBULIN RATIO 0.78 (1.1-2.4); ANION GAP 13.1 (7-21); BILIRUBIN, TOTAL 0.8 mg/dL (0.2-1.0); BUN/CREATININE RATIO 34.6 (6.0-28.6); CALCIUM 10.3 mg/dL (8.5-10.1); CREATININE, SERUM 2.63 mg/dL (0.70-1.30); POTASSIUM 4.1 mmol/L (3.5-5.1); PROTEIN, TOTAL 7.3 g/dL (6.4-8.2)
[2024-12-27] MEDS ORDERED: HEParin SOD (PORCINE) 5,000 UNIT/ML SYR IV PRN ×3 (11:15)
[2024-12-27] MEDS ORDERED: HEParin SOD (PORCINE) 5,000 UNIT/ML VIAL IV ONE (11:15)
[2024-12-27] MEDS ORDERED: HEPARIN SOD,PORK IN 0.45% NACL 500 ML IV SCH (11:15)
[2024-12-27] MEDS ORDERED: HEParin SOD (PORCINE) 5,000 UNIT/ML SYR IV ONE (11:15)
[2024-12-27 11:50] LABS: PARTIAL THROMBOPLASTIN TIME 24.3 Sec (22.9-41.3)
[2024-12-27 11:51] LABS: INR 1.04 (0.80-1.30); PROTIME 13.5 Sec (11.2-14.2)
[2024-12-27] MEDS ORDERED: SODIUM CHLORIDE 0.9% 500 ML IV SCH (12:00)
[2024-12-27] MEDS ORDERED: SODIUM CHLORIDE 0.9% 500 ML IV PRN (12:45)
[2024-12-27] MEDS ORDERED: IBLOOD GLUCOSE TEST STRIP 1 EA TEST XX PRN (16:30)
[2024-12-27] MEDS ORDERED: LACTATED RINGER'S 1,000 ML IV SCH (16:30)
[2024-12-27] MEDS ORDERED: DEXTROSE 50% 50 ML SYR IV PRN ×2 (16:30)
[2024-12-27] MEDS ORDERED: ondansetron HCL 4 MG/2 ML VIAL IV PRN (16:30)
[2024-12-27] MEDS ORDERED: DEXTROSE 5% 1,000 ML IV PRN (16:30)
[2024-12-27] MEDS ORDERED: GLUCAGON,HUMAN RECOMBINANT 1 MG/ML VIAL SUB-Q PRN (16:30)
[2024-12-27] MEDS ORDERED: bisacodyL 10 MG SUPP PR PRN (16:30)
[2024-12-27] MEDS ORDERED: ACETAMINOPHEN 325 MG TAB PO PRN (16:30)
[2024-12-27] MEDS ORDERED: IBLOOD GLUCOSE TEST STRIP 1 EA TEST VI SCH (17:00)
[2024-12-27] MEDS ORDERED: INSULIN LISPRO 100 UNIT/ML ML SUB-Q SCH (17:00)
[2024-12-27 17:32] VITALS: BP 160/57
--- NOTE | 2024-12-27 17:57 | NUR ---
PT ARRIVES TO MED-SURG ROOM 111 AT 1729 VIA GURNEY. PT IS AWAKE AND ALERT, A&0 X4. VSS. VERBAL REPORT RECEIVED FROM ALFREDA QURESHI. PT ORIENTED TO ROOM, CALL LIGHT, PHONE AND BED. CALL LIGHT IN REACH. PT EATS DINNER. BELONGINGS IN ROOM IN SAH BAG. HEARING AIDE IN LEFT EAR ONLY, UPPER DENTURES IN MOUTH. NO REQUESTS AT THIS TIME. WALKER AND CANE IN ROOM.
--- NOTE | 2024-12-27 18:10 | NUR ---
HEPARIN DRIP STOPPED PER PROTOCOL, 30 MINUTE STOP REQUIRED.
--- NOTE | 2024-12-27 18:40 | NUR ---
HEPARIN DRIP TITRATED TO 26 ML/HR, TIERRA Johnson RN VERIFIES. INFUSION RESTARTED.
--- NOTE | 2024-12-27 19:27 | NUR ---
Report received from day shift RN. Heparin gtt double checked with day shift RN and is infusing at 26ml/hr per protocal and most recent aPTT. Pt is resting in bed with no complaints noted. Safety precautions maintained. Call light within reach. Will continue to monitor.
--- NOTE | 2024-12-27 19:40 | NUR ---
PHONE CALL FROM pt'S DAUGHTER OUSMANE, WILL BE BY TO SEE pt TOMORROW. pt UPDATED. RESTING IN BED, DENIES NEEDS. CALL LIGHT IN REACH.
--- NOTE | 2024-12-27 19:53 | NUR ---
PHONE CALL FROM pt'S SON, TRANSFERRED TO ROOM PER pt REQUEST, TALKING ON PHONE AT THIS TIME.
[2024-12-27 20:08] VITALS: BP 131/64
[2024-12-27 20:10] VITALS: BP 131/64
--- NOTE | 2024-12-27 20:15 | NUR ---
Pt assessed and medications given. Heparin infusing at 26ml/hr. IVF infusing at 75ml/hr. Doppler used on BLE, pulses noted. VSS, pt on RA. Pt up x1 with walker to bathroom, pt tolerated it well. Pt expressed no complaints or concerns. Safety precautions maintained. Call light within reach. Will continue to monitor.
[2024-12-27] MEDS ORDERED: ATORVASTATIN 10 MG TAB PO SCH (21:00)
[2024-12-27] MEDS ORDERED: MELATONIN 3 MG TAB PO PRN (21:00)
--- NOTE | 2024-12-27 23:37 | NUR ---
CALL LIGHT ANSWERED. PT NEEDED TO USE BATHROOM. STORAGE SOLUTIONS ARCHITECT 1PA PT TO STAND AT BEDSIDE AND PT USED URINAL. PT ASSISTED BACK TO BED. OUTPUT MEASURED AND URINAL EMPTIED. PT STATES NO FURTHER NEEDS AT THIS TIME. CALL LIGHT WITHIN REACH AND BED ALARM ON.
[2024-12-28] VITALS (10 sets, daily range): BP systolic 144–174; BP diastolic 53–65
--- NOTE | 2024-12-28 01:48 | NUR ---
COMPETITIVE SHOPPER OBTAINED VITALS AND I&O. PT STATES NO NEEDS AT THIS TIME. CALL LIGHT WITHIN REACH.
--- NOTE | 2024-12-28 01:52 | NUR ---
Pt's aPTT came back at 0042 at 122.4. Heparin infusion stopped for 30 minutes per protocal. Heparin gtt started again at 0140 at 24ml/hr. Charge nurse, Jaz, verified restart and calculation. New aPTT order put in for a 0750 draw. Pt resting in bed and states no complaints or concerns.
--- NOTE | 2024-12-28 04:06 | NUR ---
CALL LIGHT ANSWERED. PT NEEDED TO USE BATHROOM. BAKELITE MOLDER 1PA PT TO STAND AT BEDSIDE AND PT USED URINAL. PT VOIDED AND ASSISTED BACK TO BED. OUTPUT MEASURED. PT STATES NO FURTHER NEEDS AT THIS TIME. CALL LIGHT WITHIN REACH AND BED ALARM ON.
--- NOTE | 2024-12-28 05:43 | NUR ---
FIELD WORKER OBTAINED VITALS AND I&O. ICE WATER REFILLED. PT STATES NO NEEDS AT THIS TIME. CALL LIGHT WITHIN REACH AND BED ALARM ON.
--- NOTE | 2024-12-28 05:56 | NUR ---
Pt rested well during the shift. VSS. IVF continued. Heparin gtt infusing and titrated per protocal according to aPTT. Next aPTT lab draw is scheduled at 0750. Pt able to use urnial at bedside, good output noted. Pt refused any pain medication for 7/10 pain in LLE. Safety precautions maintained. Call light within reach. Will continue to monitor.
--- NOTE | 2024-12-28 07:20 | NUR ---
REPORT RECEIVED FROM ALFREDA HAMM. PT AMBULATING WITH FWW AND ALFREDA CALLAHAN TO RESTROOM. HEPARIN CHECKED ON FLOWSHEET AND WITH NOC NURSE ALFREDA HAMM, INFUSING WNL AT 24ML/HR. PT REMAINS BEING ASSISTED BY ALFREDA CALLAHAN AT THIS TIME.
--- NOTE | 2024-12-28 07:37 | NUR ---
UR CLINICAL REVIEW: 2 [place], MEETS INPT FOR DVT NEED FOR HEPARIN GTT, KIDNEY DISEASE REQUIRING IVF, CLOSE MONITORING MEDICARE INPT 12/27/2024 @ 6734 ORDER MATCHES REG NO AUTH REQUIRED PER MEDICARE RULES DC PLAN PENDING FURTHER EVAL AND TREATMENT.
[2024-12-28 07:59] LABS: EOSINOPHILS 5.9 % (0-6); HEMATOCRIT 40.5 % (35.0-50.0); HEMOGLOBIN 13.6 g/dL (12.0-18.0); LYMPHOCYTES 12.1 % (24-44); MCH 28.8 (27-36); MCHC 33.5 g/dl (30-36); MCV 86.1 fl (81-99); MONOCYTES 10.3 % (0-12); NEUTROPHILS 70.7 % (39-80); PLATELET COUNT 214 K/uL (140-440); RDW 18.5 (10.5-15.0)
[2024-12-28 08:11] LABS: ANION GAP 12.2 (7-21); BUN/CREATININE RATIO 34.9 (6.0-28.6); CALCIUM 10.3 mg/dL (8.5-10.1); CREATININE, SERUM 2.12 mg/dL (0.70-1.30); INR 1.03 (0.80-1.30); MAGNESIUM 2.3 mg/dL (1.8-2.4); POTASSIUM 4.2 mmol/L (3.5-5.1); PROTIME 13.4 Sec (11.2-14.2)
[2024-12-28] MEDS ORDERED: LOSARTAN POTASSIUM 50 MG TAB PO SCH (09:00)
--- NOTE | 2024-12-28 09:15 | NUR ---
ASSESSMENT COMPLETE. PT UP IN RECLINER WITH NO COMPLAINTS OF PAIN OR DISCOMFORT EXCEPT WITH LIGHT PALPATATION OF HIS L CALF AND ANKLE. PT REPORTS NO SOB. HE IS ON ROOM AIR. BILAT PEDAL PULSES FOUND WITH DOPPLER AND MARKED. PTs DAUGHTER ARRIVES TO VISIT PT. PT REQUESTS WARM BLANKET - PROVIDED. PT HAS NO OTHER REQUESTS. BOTH IVs FLUSH WNL, HEPARIN CONTINUES AT 24ML/HR AND INFUSING WNL. CALL LIGHT IN REACH, PTs DAUGHTER REMAINS IN ROOM.
--- NOTE | 2024-12-28 09:22 | NUR ---
PATIENT IS IN THE CHAIR AT THIS TIME. PRECISION LENS GRINDER CHARTED VITALS AND I&O'S, GOT A WARM WASH CLOTH TO WASH HIS FACE. PRECISION LENS GRINDER GOT PATIENT A WARM BLANKET, FRESH WATER, DAUGHTER IS IN ROOM AT THIS TIME. CALL LIGHT WITH IN REACH. NOTHING ELSE NEEDED AT THIS TIME.
--- NOTE | 2024-12-28 09:36 | NUR ---
PHYSICAL THERAPY JUAN AND SLIP BRIDGE OPERATOR PRESENT IN ROOM TO WORK WITH PT.
--- NOTE | 2024-12-28 09:53 | NUR ---
PT NOT AVAILABLE FOR VISIT. PROVIDED PRAYER.
--- NOTE | 2024-12-28 10:34 | NUR ---
VISITED DURING SPIRITUAL CARE ROUNDS. PT SUPPORTED BY DAUGHTER IN ROOM. BOTH STATE NO IMMEDIATE NEEDS. LEGAL INTERNSHIP PROVIDED SUPPORTIVE PRESENCE, HOSPTIALITY, PRAYER.
--- NOTE | 2024-12-28 10:46 | NUR ---
MED REC COMPLETE
--- NOTE | 2024-12-28 11:30 | NUR ---
Spoek with Ameya. He lives in a home with 1 step. He has rails on each door into his home and his bathroom. He drives. His grandson lives with him. He denies needs. He uses a walker, cane, and shower chair. He plans on dc to home when he is medically cleared. He denies financial issues.
--- NOTE | 2024-12-28 11:42 | NUR ---
BLOOD SUGAR OBTAINED AND RECORDED. KAREN FROM CASE MANAGEMENT PRESENT TO TALK WITH PT. PT UP IN RECLINER, NO REQUESTS, CALL LIGHT IN REACH.
[2024-12-28] MEDS ORDERED: PHARMACY RENAL DOSE ADJUSTMENT 1 DOSE MISC PO SCH (12:00)
--- NOTE | 2024-12-28 13:56 | NUR ---
PT REMAINS UP IN RECLINER, DAUGHTER IS PRESENT AT THIS TIME. PT HAS NO REQUESTS, CALL LIGHT IN REACH, DAUGHTER REMAINS IN ROOM.
--- NOTE | 2024-12-28 14:13 | NUR ---
PATIENT IN HIS CHAIR AT THIS TIME, REHABILITATION TEACHER CHARTED VITALS AND I&O'S. CALL LIGHT WITH IN REACH, NOTHING ELSE NEEDED AT THIS TIME.
--- NOTE | 2024-12-28 14:36 | NUR ---
PTs APTT 95.5. NO CHANGE ACCORDING TO FLOWSHEET. PT HAS APTT WITHIN RANGE X2 TODAY, NEXT LAB DRAW SCHEDULED TOMORROW AM 0500 PER PROTOCOL.
--- NOTE | 2024-12-28 15:06 | NUR ---
PT UP IN RECLINER RESTING WITH EYES CLOSED, RR EVEN AND UNLABORED, WAKES WHEN THIS RN ENTERS. BOTH IVs FLUSH WNL, INFUSING IVF AND HEPARIN WNL. PTs RLE REMAINS UNCHANGED FROM THIS AM WITH GENERALIZED EDEMA, LYUDMILA COLOURING, AND PEDAL PULSE FOUND WITH DOPPLER. PTs LLE WITH MILDLY INCREASED EDEMA, 1+ PITTING, MILD PAIN WITH PALPATION, PEDAL PULSE FOUND WITH DOPPLER. BLE HAVE GOOD CAP REFILL, LESS THAN 3 SECONDS. PT ENCOURAGED TO ELEVATE HIS LEGS. BLE CURRENTLY ELEVATED ON PILLOW IN RECLINER. PT REPORTS NO PAIN OR DISCOMFORT, STATING "MY ANKLE DOESN'T EVEN HURT TODAY". WARM BLANKETS PROVIDED, NO REQUESTS, CALL LIGHT IN REACH.
--- NOTE | 2024-12-28 16:03 | NUR ---
PT AMBULATES WITH 4WW FROM RECLINER TO RESTROOM. PRIVACY PROVIDED, PT VERBALIZES UNDERSTANDING OF CALL CORD USE.
--- NOTE | 2024-12-28 17:34 | NUR ---
PT ASSISTED TO SIT UP HIGHER IN BED, DINNER TRAY SET UP. PT BEGINS TO EAT. PT NOTED TO HAVE A SCANT AMOUNT OF BLOOD ON L EAR. EAR CLEANED WITH ALCOHOL SWAB, SCRATCH NOTED TO ENTRANCE OF EAR CANAL AND ALSO ON PTs HEARING AID. SCRATCH DOES NOT CONTINUE TO BLEED. PT EATING SUPPER AT THIS TIME. NO REQUESTS, CALL LIGHT IN REACH.
--- NOTE | 2024-12-28 19:00 | NUR ---
RECEIVED REPORT FROM TJ FAITH. PT IN BED, EYES CLOSED, RESP EVEN AND UNLABORED. IV INFUSING PER MAR, HEPARIN INFUSING PER MAR
--- NOTE | 2024-12-28 20:19 | NUR ---
CALL LIGHT ANSWERED, pt UP SBA WITH PERSONAL FOUR WHEELED WALKER, VOIDED 300MLS IN BATHROOM AND BACK TO BED-BED ALARM RESUMED. CALL LIGHT IN REACH ALONG WITH BELONINGS. VS AND I&O'S COLLECTED, PRIMARY RN IN ROOM FOR EVENING MED PASS.
--- NOTE | 2024-12-28 20:40 | NUR ---
ASSESSMENT COMPLETED. HEPARIN CONTINUES. PT DENIES NEEDS. LEFT LEG WARM, DOPPLER PULSE GENNA. EDEMA CONTINUES GENNA. PT ABLE TO MOVE TOES ON COMMAND. FRESH ICE WATER GIVEN. ALL PERSONAL SUPPLIES WITHIN REACH. GARBAGES EMPTIED, WHITE BOARD UPDATED.
--- NOTE | 2024-12-28 22:12 | NUR ---
IV ALARMING, TUBING KINKED, PT WOKE TO STIMULI, VOICED NO NEEDS. EYES CLOSED WHEN RN LEFT ROOM.
--- NOTE | 2024-12-28 23:38 | NUR ---
rounded on pt. on back, eyes closed. resp even and unlabored. occassional twitch of feet.
[2024-12-29] VITALS (10 sets, daily range): BP systolic 124–149; BP diastolic 48–75
--- NOTE | 2024-12-29 01:13 | NUR ---
bathroom call light answered, pt had medium sized formed bm and voided, pt back in bed sba with fww-steady on feet. bed alarm resumed and call light in reach. primary rn updated.
--- NOTE | 2024-12-29 02:44 | NUR ---
ROUNDED ON PT. IN BED, EYES CLOSED, RESP EVEN AND UNLABORED. HAVE HEARD HIM COUGHING, NONPRODUCTIVE OCCASSIONAL IN THE LAST HOUR.
--- NOTE | 2024-12-29 04:00 | NUR ---
ROUNDED ON PT. EYES CLOSED, RESP EVEN AND UNLABORED
[2024-12-29 05:34] LABS: BASOPHILS 1.3 % (0-2); EOSINOPHILS 5.4 % (0-6); HEMATOCRIT 38.9 % (35.0-50.0); LYMPHOCYTES 11.4 % (24-44); MCH 28.8 (27-36); MCHC 33.4 g/dl (30-36); MCV 86.3 fl (81-99); MONOCYTES 10.4 % (0-12); NEUTROPHILS 71.5 % (39-80); PLATELET COUNT 213 K/uL (140-440); RBC 4.51 M/ul (4.3-5.7); RDW 18.8 (10.5-15.0)
--- NOTE | 2024-12-29 05:38 | NUR ---
PT WITH DVT LEFT LEG. LE GENNA WITH EDEMA. PULSES FELT WITH DOPPLER. PAINFUL TO AMBULATE, FAVORING LEFT LEG. NOTED PT COUGHING OCCASSIONAL, PT STATES THAT HE GETS PLEGM, NOT UNCOMMON. SAID HE HAD A "HECK OF A NIGHT". WHILE THIS RN CHECKED HIM, HE APPEARED TO BE RESTING, PT STATED HE FELT LIKE HE DIDN'T SLEEP WELL. ONE PERSON WITH FWW TO BATHROOM. HEARING AIDE IN LEFT EAR THIS AM. HEPARIN INFUSING LEFT IV, AND LR INFUSING RIGHT.
[2024-12-29 05:45] LABS: ANION GAP 12.3 (7-21); BUN/CREATININE RATIO 29.76 (6.0-28.6); CALCIUM 9.8 mg/dL (8.5-10.1); CREATININE, SERUM 2.15 mg/dL (0.70-1.30); POTASSIUM 4.3 mmol/L (3.5-5.1)
--- NOTE | 2024-12-29 07:34 | NUR ---
RECIEVED SHIFT REPORT FROM APRIL. PT IS AWAKE IN BED, DENIES NEEDS. CALL LIGHT IN REACH.
--- NOTE | 2024-12-29 08:20 | NUR ---
IV HEPARIN INFUSION COMPLETED, PHARMACY NOTIFIED FOR A NEW BAG. HEPARIN INFUSION RESTARTED AT THIS TIME. 23.8ML/HR AND 15U/KG/HR. PHARMACY PRESENT AND REVIEWED WITH THEM. PRIMARY RN NOTIFIED NEW BAG STARTED, WITNESS CORRECT INFUSION AT THIS TIME. IV TUBING LABELED WITH HEPARIN LABEL. PT DENIES ANY FURHTER NEEDS, SITTING UP ON EDGE OF BED HAVING BREAKFAST AT THIS TIME. CALL LIGHT WITHIN REACH.
--- NOTE | 2024-12-29 09:48 | NUR ---
MORNING ASSESSMENT COMPLETE. PT IS SITTING UP IN RECLINER, AWAKE. PT COMPLAINS OF A HEADACHE, 6/. REPORTS A SUDDEN URGE OF ANXIETY AND SOB. SPO2 93% ON RA. LUNG SOUNDS DIM IN ALL LOBES. PT STATES HE ALWAYS FEELS DIFFERENT BUT THIS FEELING IS ABNORMAL FROM OTHER DAYS. PT IS ROCKING BACK AND FORTH WITH SOME INTERMITTENT LEG SHAKING. CALL LIGHT IN REACH.
--- NOTE | 2024-12-29 09:55 | NUR ---
MD NOTIFED ON PATIENTS SYMPTOMS AT THIS TIME.
--- NOTE | 2024-12-29 10:03 | NUR ---
SBA to bathroom. Patient is currently sitting up in their chair. RN LULU and student nurse Riddhi in the room. Call light and personal items within reach.
--- NOTE | 2024-12-29 10:30 | NUR ---
Spoke with Ameya. He states he doesn't feel well today. He c/o headache,sob, and anxiety. States he is not sure why he is feeling this. Notified Agueda LAWSON. Pt states someone is bringing him tylenol.
--- NOTE | 2024-12-29 10:33 | NUR ---
PT NOT AVAILABLE FOR VISIT. PROVIDED PRAYER.
--- NOTE | 2024-12-29 11:09 | NUR ---
PATIENT TO BE STARTED ON COUMADIN/WARFARIN THIS AFTERNOON. HE WAS NOT TAKING COUMADIN COMMISSIONS MANAGER, THOUGH HE STATES HE WAS TAKING IT A FEW YEARS AGO FOR A BLOOD CLOT IN HIS ELBOW. HIS ALSO TOOK COUMADIN. I PROVIDED HIM A HANDOUT ON DIET REMINDERS FOR AVOIDING EXCESSIVE CONSUMPTION OF FOODS HIGH IN VITAMIN K. HE DOESN'T EAT DARK LEAFY GREENS ANYWAY. WILL EAT SOME BROCCOLI IF SOMEONE PREPARES IT FOR HIM. I ALSO REMINDED HIM DON'T START TAKING ANY NEW VITAMINS WITH VITAMIN K IN IT. HE HAS GOOD UNDERSTANDING. NO QUESTIONS OR CONCERNS. HANDOUT HAS MY OFFICE # IN CASE QUESTIONS ARISE.
[2024-12-29] MEDS ORDERED: APIXABAN 5 MG TAB PO SCH (11:30)
--- NOTE | 2024-12-29 11:32 | NUR ---
PT STATES HEADACHE PAIN HAS RESOLVED. FEELS BETTER OTHERWISE. STATES THE ANXIOUS FEELING IS STILL THERE. PT WAS EDUCATED ON NEW MEDICAION ELIQUIS. NO QUESTIONS. CALL LIGHT IN REACH.
--- NOTE | 2024-12-29 12:35 | NUR ---
MOVED PT FROM CHAIR TO BED FOR ULTRASOUND. HEPARIN NO LONGER INFUSING AT THIS TIME. PER MARILEE, PHARMACY TO STOP HEPARIN 1 HOUR AFTER ELIQUIS WAS TAKEN. CALL LIGHT IN REACH. FAMILY AT BEDSIDE.
[2024-12-29] MEDS ORDERED: hydrOXYzine pamoate 25 MG CAP PO PRN (12:45)
[2024-12-29] MEDS ORDERED: TRAZODONE HCL 50 MG TAB PO PRN (12:45)
--- NOTE | 2024-12-29 12:54 | EKG ---
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
--- NOTE | 2024-12-29 13:41 | NUR ---
Patient is wheezing and coughing. SpO2 was at 86%. RN CJ notified immediately and RT called.
--- NOTE | 2024-12-29 13:43 | NUR ---
SUBMERSIBLE PILOT IN ROOM IN VITALS, PT IS RESTING IN BED, SUBMERSIBLE PILOT NOTIFIES THIS RN THAT PT IS PT IS WHEEZEY, AND SPO2 IS 86% ON RA. LISTENED TO PT, AUDIBLE WHEEZE BILAT UPPER, SOB, MOVE PULSE OX TO ANOTHER FINGER, SPO2 SUSTAINING AT 89%. PLACED ON 2L NC, SPO2 93%. NOTIFIED BY ALFREDA CANELA.
[2024-12-29] MEDS ORDERED: FUROSEMIDE 20 MG/2 ML VIAL IV SCH (13:46)
--- NOTE | 2024-12-29 13:47 | NUR ---
PT C/O INCREASE SOB, PRIMARY RN NOTIFIES PT IS WHEEZY. MD NOTIFIED. RT CALLED FOR PRN BREATHING TREATMENT, PER MD RT TO ORDER ACCORDINGLY, RT WILL COME TO BEDSIDE. MD INFORMED O2 WAS 88% ON RA, ADMINISTERED 2L O2 PER NC, INCREASED SATS TO 93%. MD INFORMED OF CXR/DOPPLER US RESULTS, IF PATIENT BECOMES TACHYCARDIC OVER 90'S PLEASE LET HIM KNOW, PRIMARY RN NOTIFIED.
--- NOTE | 2024-12-29 13:57 | NUR ---
IN ROOM TO SWAB PT NOSE, SPO2 99% ON 2L. PT REMOVED OFF OXYGEN AT THIS TIME. PT STILL SOB. CALL LIGHT IN REACH.
--- NOTE | 2024-12-29 14:06 | NUR ---
SPO2 90% RA, PLACED ON 1L NC. SPO2 UP TO 93%. ALFREDA CANELA IN ROOM ASSISTED WITH BOOSTING PT.
[2024-12-29 14:38] LABS: INFLUENZA B NAA NEGATIVE (NEGATIVE); RESPIRATORY SYNCYTIAL VIR NAA NEGATIVE (NEGATIVE)
[2024-12-29] MEDS ORDERED: ALBUTEROL SULFATE 0.083% 3 ML VIAL INH PRN (14:45)
--- NOTE | 2024-12-29 15:30 | NUR ---
PT IN BED AWAKE, VISITING WITH FAMILY. DENIES NEEDS. CALL LIGHT IN REACH
--- NOTE | 2024-12-29 17:51 | NUR ---
PT RESTING IN ROOM, EYES CLOSED, BREATHING EVEN AND UNLABORED. CALL LIGHT IN REACH.
--- NOTE | 2024-12-29 18:35 | NUR ---
PT IS RESTING IN BED, EYES CLOSED, BREATHING EVEN AND UNLABORED. CALL LIGHT IN REACH.
--- NOTE | 2024-12-29 19:15 | NUR ---
REPORT RECEIVED FROM ALFREDA YOUNG. pt RESTING IN BED WITH EYES CLOSED. 1L OXYGEN BY OH PLACE. NO DISTRESS NOTED. BED ALARM ON.
--- NOTE | 2024-12-29 19:28 | NUR ---
INFORMED OF ELEVATED HR OF 93 ON 1745 VITALS, PT STILL REPORTS INCREASED SOB, SLEEPING AT THIS TIME. NO NEW ORDERS, CURRENTLY RECEIVING TREATMENT FOR DVT, WOULD NOT CHANGE COURSE OF TREATMENT. PRIMARY RN NOTIFIED- NO NEW ORDERS.
--- NOTE | 2024-12-29 20:07 | NUR ---
PERFORATOR OBTAINED VITALS. NO NEW I&O AT THIS TIME. CALL LIGHT WITHIN REACH AND BED ALARM ON.
--- NOTE | 2024-12-29 20:42 | NUR ---
IN ROOM FOR ASSESSMENT, pt AWAKENS TO VOICE. ASSESSMENT COMPLETE. LUNG SOUNDS CLEAR. BREATHING LABORED. SBA WITH FWW TO RESTROOM FOR VOID AND BACK TO BED, 2L OXYGEN BY NC IN PLACE. RR 20 AFTER BACK IN BED. CPOX PLACED. BED ALARM ON. CALL LIGHT IN REACH.
--- NOTE | 2024-12-29 23:05 | NUR ---
CALL LIGHT ANSWERED. SBA WITH FOUR WHEEL WALKER TO RESTROOM AND BACK TO BED. BED ALARM ON. 2L OXYGEN BY NC IN PLACE, SPO2 89-90% WHEN pt BACK IN BED AFTER AMBULATING.
--- NOTE | 2024-12-30 00:51 | NUR ---
CHECKED ON pt. RESTING IN BED WITH EYES CLOSED. SPO2 94% WITH 2L OXYGEN BY NC IN PLACE, HR 64. NO DISTRESS NOTED. BED ALARM ON.
--- NOTE | 2024-12-30 02:19 | NUR ---
ROUNDED ON Pt. RESTING IN BED WITH EYES CLOSED, 2L OXYGEN BY NC IN PLACE. BREATHING UNLABORED. NO DISTRESS NOTED.
--- NOTE | 2024-12-30 02:32 | NUR ---
CALL LIGHT ANSWERED. PT NEEDED TO USE BATHROOM. DATA ANALYTICS SPECIALIST SBA WITH WALKER TO BATHROOM. PT VOIDED AND ASSISTED BACK TO BED. ICE WATER REFILLED. PT STATES NO FURTHER NEEDS AT THIS TIME. CALL LIGHT WITHIN REACH AND BED ALARM ON. RN IN ROOM.
--- NOTE | 2024-12-30 02:40 | NUR ---
pt BACK TO BED FROM RESTROOM. BREATHING LABORED. pt COMPLAINS OF SOB, REQUESTS OXYGEN TITRATED TO HOME O2, 2.5L. SPO2 87% ON 2L OXYGEN, TITRATED TO 2.5L, pt SPO2 INCREASES TO 90%. ASSESSMENT COMPLETE. ICE WATER REFILLED. PERSONAL SUPPLIIES AND CALL LIGHT WITHIN REACH. NO ADDITIONAL REQUESTS.
[2024-12-30 05:12] VITALS: BP 148/62
--- NOTE | 2024-12-30 05:14 | NUR ---
pt SLEEPING, AWAKENS TO VOICE. VSS. 2.5L OXYGEN BY NC IN PLACE. CALL LIGHT IN REACH. BED ALARM ON.
[2024-12-30 05:27] VITALS: BP 148/62
[2024-12-30 05:31] LABS: BASOPHILS 1.1 % (0-2); EOSINOPHILS 2.6 % (0-6); HEMATOCRIT 36.6 % (35.0-50.0); HEMOGLOBIN 12.2 g/dL (12.0-18.0); LYMPHOCYTES 6.3 % (24-44); MCH 28.6 (27-36); MCHC 33.3 g/dl (30-36); MCV 85.9 fl (81-99); MONOCYTES 10.8 % (0-12); NEUTROPHILS 79.2 % (39-80); PLATELET COUNT 193 K/uL (140-440); RBC 4.26 M/ul (4.3-5.7); RDW 18.4 (10.5-15.0)
[2024-12-30 05:43] LABS: ANION GAP 11.2 (7-21); BUN/CREATININE RATIO 28.5 (6.0-28.6); CREATININE, SERUM 2.07 mg/dL (0.70-1.30); MAGNESIUM 2.1 mg/dL (1.8-2.4); POTASSIUM 4.2 mmol/L (3.5-5.1)
--- NOTE | 2024-12-30 05:58 | NUR ---
CALL LIGHT ANSWERED. PT NEEDED TO USE BATHROOM. CHANGE MANAGEMENT CONSULTANT 1PA WITH FWW TO BATHROOM. PT VOIDED AND ASSISTED BACK TO BED. PT STATES NO FURTHER NEEDS AT THIS TIME. CALL LIGHT WITHIN REACH AND BED ALARM ON.
--- NOTE | 2024-12-30 07:22 | NUR ---
RECIEVED MORNING REPORT FROM ALFREDA WILLAMS. PT IS RESTING IN BED, EYES CLOSED, BREATHING EVEN AND UNLABORED. CALL LIGHT IN REACH.
--- NOTE | 2024-12-30 08:45 | NUR ---
PT SITTING ON THE SIDE OF THE BED EATING BREAKFAST. CALL LIGHT IN REACH
[2024-12-30] MEDS ORDERED: AZITHROMYCIN 250 MG TAB PO SCH (09:00)
[2024-12-30] MEDS ORDERED: FUROSEMIDE 20 MG/2 ML VIAL IV SCH (09:00)
[2024-12-30] MEDS ORDERED: CEFTRIAXONE SODIUM 2 GM in SODIUM CHLORIDE 0.9% 100 ML IV SCH (09:00)
[2024-12-30] MEDS ORDERED: CEFTRIAXONE SODIUM 2 GM VIAL ONE (09:09)
[2024-12-30 09:21] VITALS: BP 148/56
--- NOTE | 2024-12-30 09:27 | NUR ---
PATIENT IS SITTING ON THE SIDE OF HIS BED AT THIS TIME. PUBLIC TRANSIT TROLLEY DRIVER GOT FRESH WATER, ASSISTED TO THE RESTROOM, CHARTED VITALS AND I&O'S. CALL LIGHT WITH IN REACH. NOTHING ELSE NEEDED AT THIS TIME. RN AND STUDENT IN THE ROOM.
[2024-12-30 09:47] VITALS: BP 148/56
--- NOTE | 2024-12-30 10:11 | NUR ---
MORNING ASSESSMENT COMPLETE. PT IS SITTING ON THE EDGE OF THE BED, DENIES PAIN OR DISCOMFORT. LUNG SOUNDS ARE DIM THROUGHOUT. DENIES SOB. SPO2 94% ON 1L NC. PEDAL PULSES FOUND WITH DOPPLER, MARKED WITH MARKER. NO CHNAGES WITH BLE, REMAINS LYUDMILA IN COLOR. CALL LIGHT IN REACH.
--- NOTE | 2024-12-30 11:15 | NUR ---
PT SITTING ON EDGE OF BED, CALL LIGHT IN REACH. DENIES NEEDS
--- NOTE | 2024-12-30 12:04 | NUR ---
COMPOSITION MIXER REPORTS TO THIS RN THAT PT IS ANXIOUS, SPO2 89% ON 1L NC. THIS RN IN ROOM TO ASSESS PT. PT IS ROCKING BACK AND FORTH ON BED, LEG IS SHAKING, DENIES SOB AT THIS TIME. REASSESSED SPO2 93% ON 1L NC. FAMILY HAS QUESTIONS ANSWERED QUESTIONS FOR FAMILY AND PT, BUT FAMILY STILL HAD CONCERNS. MD CALLED TO COME SPEAK WITH FAMILY TO HELP ANSWER UNANSWERED QUESTION.
--- NOTE | 2024-12-30 12:41 | NUR ---
PT COMPLAINING OF HEADACHE 04/10. PRN PAIN MEDICATION ADMINISTERED (PER EMAR). FAMILY AT BEDSIDE. CALL LIGHT IN REACH.
[2024-12-30] MEDS ORDERED: ELIQUIS5 MG PO (13:00)
[2024-12-30] MEDS ORDERED: HYDROXYZINE PAM25 MG PO (13:01)
[2024-12-30] MEDS ORDERED: DOXYCYCLINE HY100 MG PO (13:02)
[2024-12-30] MEDS ORDERED: ALBUTEROL S5 MG/1 ML INH (13:03)
[2024-12-30 13:24] VITALS: BP 148/75
--- NOTE | 2024-12-30 13:34 | NUR ---
PATIENT SITTING ON THE EDGE OF THE BED AT THIS TIME. PATIENT WASNT HUNGRY SAID HE WAS TO ANXIOUS, PRODUCT MANAGER MEDICAL DEVICE GOT HIM FRESH WATER. CHARTED VITALS AND I&O'S, FAMILY IN ROOM AT THIS TIME. CALL LIGHT WITH IN REACH NOTHING ELSE NEEDED AT THIS TIME.
[2024-12-30] MEDS ORDERED: VENTOLIN HFA18 GM INH (13:54)
--- NOTE | 2024-12-30 14:13 | NUR ---
faxed RX for albuterol inhaler 2 puffs q4-6h prn ShOB #1 to [facility] with directive to cancel RX for albuterol neb solution
--- NOTE | 2024-12-30 14:20 | NUR ---
BRODERICK JACOME REMOVED TWO IVS FROM PT. LH AND RAC BOTH INTACT. PRIOR TO DSCHARGE.
== END 2024-12-30 14:33 | disposition home or self-care (01) | DRG 299 ==
LOC: ED 09:21 → MS 16:51
PROVIDERS: Emergency Medicine; ADMIT Student in an Organized Health Care Education/Training Program; ATTEND Student in an Organized Health Care Education/Training Program
DX: I82.422 Acute embolism and thrombosis of left iliac vein (principal); J18.9 Pneumonia, unspecified organism; N17.9 Acute kidney failure, unspecified; I82.412 Acute embolism and thrombosis of left femoral vein; E78.00 Pure hypercholesterolemia, unspecified; Z66 Do not resuscitate; E11.22 Type 2 diabetes mellitus with diabetic chronic kidney disease; I12.9 Hypertensive chronic kidney disease with stage 1 through stage 4 chronic kidney disease, or unspecified chronic kidney disease; N18.9 Chronic kidney disease, unspecified; E78.5 Hyperlipidemia, unspecified; F41.9 Anxiety disorder, unspecified; Z90.49 Acquired absence of other specified parts of digestive tract; Z90.89 Acquired absence of other organs; Z89.112 Acquired absence of left hand; Z87.19 Personal history of other diseases of the digestive system; Z98.890 Other specified postprocedural states; Z79.52 Long term (current) use of systemic steroids; Z87.891 Personal history of nicotine dependence; Z79.891 Long term (current) use of opiate analgesic; Z79.899 Other long term (current) drug therapy; Z79.82 Long term (current) use of aspirin; Z79.4 Long term (current) use of insulin
CPT/HCPCS: 36415; 71045; 74177; 80048; 80053; 83735; 85025; 85379; 85610; 85730; 87502; 93005; 93010; 93971; 94640; 94667; A9270; J1644; J1815; J1940; J7040; J7121; Q9967; U0002